=== PATIENT | female | born 1975 | race Caucasian/White ===

== ENCOUNTER → 2018-12-21 20:00 | Outpatient (CLI) | payer OTHER, SELFPAY ==
[2018-11-28 10:33] VITALS: BMI 30.8
== END ==
PROVIDERS: Family Provider Internal Medicine; PCP Internal Medicine; Referring Provider Internal Medicine Critical Care Medicine; Visit Provider Internal Medicine Critical Care Medicine
DX: G47.33 Obstructive sleep apnea (adult) (pediatric) (principal)
CPT/HCPCS: 95811

== ENCOUNTER → 2019-01-11 13:59 | Outpatient (CLI) | payer BC, SELFPAY ==
[2018-11-28 10:33] VITALS: BMI 30.8
== END ==
PROVIDERS: Family Provider Internal Medicine; PCP Internal Medicine; Referring Provider Nurse Practitioner Acute Care; Visit Provider Nurse Practitioner Acute Care
DX: G47.33 Obstructive sleep apnea (adult) (pediatric) (principal)

== ENCOUNTER → 2019-02-01 10:14 | Outpatient (CLI) | payer BC, SELFPAY ==
[2019-02-01 08:56] VITALS: BMI 31.6
[2019-02-01 10:28] LABS: Hemoglobin 12.1 g/dL (12.0-15.0); Mean Corp Hgb Conc 31.8 g/dL (32-36); Mean Corpuscular Volume 91.1 fL (81-99); Mean Platelet Vol. 10.2 fl (6.2-12.0); Platelet Count 261 K/mm3 (150-450); RBC Distribution Width CV 12.9 % (11.6-14.6); RBC Distribution Width SD 42.7 fl (35.1-43.9); Red Blood Count 4.17 M/mm3 (4.2-5.4); White Blood Count 8.9 K/mm3 (4.4-11.0)
[2019-02-01 10:45] LABS: Ferritin 3 ng/mL (8-252); Iron 31 ug/dL (50-170); Iron Binding Capacity,Total 375 ug/dL (250-450); PERCENT IRON SATURATION 8.3 % (15.0-55.0)
== END ==
PROVIDERS: Family Provider Internal Medicine; PCP Internal Medicine; Referring Provider Nurse Practitioner Acute Care; Visit Provider Nurse Practitioner Acute Care
DX: G25.81 Restless legs syndrome (principal)
CPT/HCPCS: 36415; 82728; 83540; 83550; 85027